=== PATIENT | male | born 1945 | race Asian ===

== ENCOUNTER 2018-10-24 19:29 | Inpatient (IN) | payer MEDICARE, OTHER ==
[2018-10-24] MEDS: CEFEPIME 2GM/50 ML (PMX) 50 ML IVPB (19:53)
[2018-10-24] MEDS: ACETAMINOPHEN 325 MG TAB PO (19:53)
[2018-10-24 19:56] LABS: ADD MAN DIFF? NO
[2018-10-24] MEDS: ALBUTEROL 0.5% (NEB) 2.5 MG/0.5 ML AMP NEB (19:56)
[2018-10-24 20:00] LABS: WHITE BLOOD COUNT 13.9 10^3/ul (4.8-10.8)
[2018-10-24 20:00] LABS: ABNORMAL IP MESSAGE 1; BASOPHIL # 0.1 10^3/ul (0.0-0.1); BASOPHILS % 0.4 % (0.0-2.0); EOSINOPHILS % 0.2 % (0.0-7.0); HEMATOCRIT 37.5 % (42.0-52.0); HEMOGLOBIN 12.5 g/dl (14.0-18.0); LYMPHOCYTES # 1.2 10^3/ul (0.8-2.9); LYMPHOCYTES % 8.8 % (15.0-51.0); MEAN CORPUSCULAR HEMOGLOBIN 29.8 pg (29.0-33.0); MEAN CORPUSCULAR HGB CONC 33.3 g/dl (32.0-37.0); MEAN CORPUSCULAR VOLUME 89.5 fl (82.0-101.0); MEAN PLATELET VOLUME 10.8 fl (7.4-10.4); MONOCYTE # 1.8 10^3/ul (0.3-0.9); MONOCYTES % 13.1 % (0.0-11.0); NEUTROPHIL # 10.7 10^3/ul (1.6-7.5); NEUTROPHILS % 76.9 % (39.0-77.0); PLATELET COUNT 176 10^3/UL (140-415); POSITIVE DIFF @See below; RED BLOOD COUNT 4.19 10^6/ul (4.70-6.10); RED CELL DISTRIBUTION WIDTH 14.4 % (11.5-14.5)
[2018-10-24 20:07] LABS: AADO2 Arterial 123.7 mmHg (7.0-24.0); Allen Test ACCEPTAB; Arterial Base Excess -7.1 mmol/L (-3.0-3); Arterial Blood Gas Oxygen Sat 95.9 mmHG (95.0-100.0); Arterial COHb 0.8 % (0.0-3.0); Arterial HCO3 15.9 mmol/L (22.0-26.0); Arterial MetHb 0.1 % (0.0-1.5); Arterial pCO2 25.7 mmhg (35-45); MODE NASAL CANNULA; Site Left Radial
[2018-10-24 20:17] LABS: ALANINE AMINOTRANSFERASE 21 IU/L (13-69); ALBUMIN 4.3 g/dl (3.3-4.9); ALBUMIN/GLOBULIN RATIO 1.02; ALKALINE PHOSPHATASE 74 IU/L (42-121); ANION GAP 15 (5-13); ASPARTATE AMINO TRANSFERASE 36 IU/L (15-46); BILIRUBIN,INDIRECT 0.8 mg/dl (0-1.1); BILIRUBIN,TOTAL 0.8 mg/dl (0.2-1.3); BLOOD UREA NITROGEN 20 mg/dl (7-20); CALCIUM 8.5 mg/dl (8.4-10.2); CARBON DIOXIDE 18 mmol/L (21-31); CHLORIDE 95 mmol/L (97-110); CREATININE 1.48 mg/dl (0.61-1.24); GLUCOSE 306 mg/dl (70-220); INR 1.17; POTASSIUM 4.5 mmol/L (3.5-5.1); PT RATIO 1.2; SODIUM 128 mmol/L (135-144); TOTAL PROTEIN 8.5 g/dl (6.1-8.1)
[2018-10-24] MEDS: VANCOMYCIN 1 GM (PMX) 250 ML IVPB (20:23)
[2018-10-24 20:32] LABS: B-TYPE NATRIURETIC PEPTIDE 1450 PG/ML (0-125)
[2018-10-24] MEDS: SODIUM CHLORIDE 0.9% 1L BAG IV* (20:34)
[2018-10-24] MEDS: ACCU-CHEK XX ×2 (22:00→23:00)
[2018-10-24] MEDS ORDERED: VANCOMYCIN IV PER PHARMACY XX (22:00)
[2018-10-24] MEDS ORDERED: ONDANSETRON 4 MG INJ IV (22:00)
[2018-10-24] MEDS ORDERED: DEXTROSE 50% 50 ML SYRINGE IV ×2 (22:00)
[2018-10-24] MEDS ORDERED: BISACODYL (EC) 5 MG TAB PO (22:00)
[2018-10-24] MEDS ORDERED: DOCUSATE SODIUM 100 MG CAP PO (22:00)
[2018-10-24 22:12] LABS: LACTIC ACID 2.5 mmol/L (0.5-2.0)
[2018-10-24] MEDS ORDERED: LEVALBUTEROL (NEB) 1.25 MG/0.5 ML AMP HHN (22:30)
[2018-10-24] MEDS: LORAZEPAM 2 MG INJ IV (22:57)
[2018-10-24] MEDS: FAMOTIDINE 20 MG INJ IV (22:57)
[2018-10-24] MEDS: METHYLPREDNISOLONE 125 MG INJ IV (22:58)
[2018-10-24 22:59] LABS: ADD UMIC YES; UR ASCORBIC ACID NEGATIVE (NEGATIVE); UR BILIRUBIN (Dip) NEGATIVE (NEGATIVE); UR BLOOD (Dip) NEGATIVE (NEGATIVE); UR CLARITY CLEAR (CLEAR); UR COLOR YELLOW (YELLOW); UR GLUCOSE (Dip) 2+ mg/dL (NEGATIVE); UR KETONES (Dip) NEGATIVE (NEGATIVE); UR LEUKOCYTE ESTERASE (Dip) NEGATIVE Leu/ul (NEGATIVE); UR NITRITE (Dip) NEGATIVE (NEGATIVE); UR RBC 1 /HPF (0-5); UR TOTAL PROTEIN (Dip) 2+ mg/dl (NEGATIVE); UR UROBILINOGEN (Dip) NEGATIVE (NEGATIVE); UR WBC 1 /HPF (0-5)
[2018-10-24] MEDS: INSULIN HUMAN REGULAR 100 UNIT in SOD CHLORIDE 0.9% 99 ML IV (23:49)
[2018-10-24] MEDS: SOD CHLORIDE 0.9% 1,000 ML IV (23:51)
[2018-10-24] MEDS: HEPARIN 5,000 UNIT/1 ML VIAL SC (23:55)
[2018-10-25] MEDS: ACETAMINOPHEN 650MG/20.3ML CUP PO (00:25)
[2018-10-25 00:39] LABS: LACTIC ACID 2.8 mmol/L (0.5-2.0)
[2018-10-25] MEDS: PIPER-TAZO 3.375 GM IV (PMX) 100 ML IVPB ×4 (01:33→18:18)
[2018-10-25] MEDS: LORAZEPAM 2 MG INJ IV ×2 (01:43→22:01)
[2018-10-25] MEDS: ACCU-CHEK XX ×24 (01:52→23:00)
[2018-10-25] MEDS: LEVALBUTEROL (NEB) 1.25 MG/0.5 ML AMP HHN ×6 (02:06→19:53)
[2018-10-25] MEDS: IPRATROPIUM (NEB) 0.5 MG/2.5 ML AMP HHN ×6 (02:06→19:52)
[2018-10-25 02:22] LABS: CREATINE KINASE 401 IU/L (23-200)
[2018-10-25 02:34] LABS: CK INDEX 0.7; CK-MB 2.69 ng/ml (0.0-2.4); TROPONIN-I 0.038 ng/ml (0.000-0.120)
[2018-10-25 05:03] LABS: AADO2 Arterial 92.2 mmHg (7.0-24.0); Allen Test ACCEPTAB; Arterial Base Excess -6.8 mmol/L (-3.0-3); Arterial Blood Gas Oxygen Sat 98.4 mmHG (95.0-100.0); Arterial COHb 0.3 % (0.0-3.0); Arterial Fraction of Oxyhgb 97.9 % (93.0-99.0); Arterial HCO3 19.2 mmol/L (22.0-26.0); Arterial MetHb 0.2 % (0.0-1.5); Arterial pCO2 40.2 mmhg (35-45); Blood Gas IEPAP 15/5; MODE MASK - BIPAP; Site Right Radial
[2018-10-25] MEDS: METHYLPREDNISOLONE 40 MG INJ IV ×3 (05:52→21:51)
[2018-10-25] MEDS: NA BICARBONATE 8.4% 50 ML SYG IV (05:52)
[2018-10-25] MEDS: HEPARIN 5,000 UNIT/1 ML VIAL SC ×2 (06:21→14:07)
[2018-10-25 06:31] LABS: ADD MAN DIFF? NO
[2018-10-25 06:34] LABS: WHITE BLOOD COUNT 14.9 10^3/ul (4.8-10.8)
[2018-10-25 06:34] LABS: ABNORMAL IP MESSAGE 1; BASOPHILS % 0.3 % (0.0-2.0); HEMATOCRIT 33.4 % (42.0-52.0); LYMPHOCYTES # 1.7 10^3/ul (0.8-2.9); LYMPHOCYTES % 11.4 % (15.0-51.0); MEAN CORPUSCULAR HEMOGLOBIN 29.3 pg (29.0-33.0); MEAN CORPUSCULAR HGB CONC 32.9 g/dl (32.0-37.0); MEAN CORPUSCULAR VOLUME 88.8 fl (82.0-101.0); MEAN PLATELET VOLUME 9.8 fl (7.4-10.4); MONOCYTE # 1.4 10^3/ul (0.3-0.9); MONOCYTES % 9.3 % (0.0-11.0); NEUTROPHIL # 11.7 10^3/ul (1.6-7.5); NEUTROPHILS % 78.3 % (39.0-77.0); PLATELET COUNT 149 10^3/UL (140-415); POSITIVE DIFF @See below; RED BLOOD COUNT 3.76 10^6/ul (4.70-6.10); RED CELL DISTRIBUTION WIDTH 14.5 % (11.5-14.5)
[2018-10-25 06:56] LABS: ALANINE AMINOTRANSFERASE 17 IU/L (13-69); ALBUMIN 3.7 g/dl (3.3-4.9); ALBUMIN/GLOBULIN RATIO 0.94; ALKALINE PHOSPHATASE 61 IU/L (42-121); ANION GAP 12 (5-13); ASPARTATE AMINO TRANSFERASE 36 IU/L (15-46); BILIRUBIN,INDIRECT 0.5 mg/dl (0-1.1); BILIRUBIN,TOTAL 0.5 mg/dl (0.2-1.3); BLOOD UREA NITROGEN 20 mg/dl (7-20); CALCIUM 8.1 mg/dl (8.4-10.2); CARBON DIOXIDE 22 mmol/L (21-31); CHLORIDE 102 mmol/L (97-110); CHOL/HDL RATIO 5.5 RATIO; CHOLESTEROL 111 mg/dl (100-200); CREATININE 1.06 mg/dl (0.61-1.24); GLUCOSE 164 mg/dl (70-220); HDL CHOLESTEROL 20 mg/dl (31-75); LDL CHOLESTEROL,CALCULATED 70 mg/dl; MAGNESIUM 1.4 mg/dl (1.7-2.5); POTASSIUM 4.1 mmol/L (3.5-5.1); SODIUM 136 mmol/L (135-144); TOTAL PROTEIN 7.6 g/dl (6.1-8.1); TRIGLYCERIDES 104 mg/dl (0-149)
[2018-10-25 07:12] LABS: Allen Test ACCEPTAB; Arterial Base Excess -5.5 mmol/L (-3.0-3); Arterial Blood Gas Oxygen Sat 96.8 mmHG (95.0-100.0); Arterial COHb 0.3 % (0.0-3.0); Arterial Fraction of Oxyhgb 96.4 % (93.0-99.0); Arterial HCO3 18.6 mmol/L (22.0-26.0); Arterial MetHb 0.1 % (0.0-1.5); Arterial pCO2 31.9 mmhg (35-45); Blood Gas IEPAP 15/5; Blood Gas PS 10; MODE MASK - BIPAP; Site Right Radial
[2018-10-25 07:23] LABS: CREATINE KINASE 329 IU/L (23-200)
[2018-10-25 07:25] LABS: THYROID STIMULATING HORMONE 0.235 MIU/L (0.465-4.680)
[2018-10-25 07:26] LABS: CK INDEX 0.7; CK-MB 2.39 ng/ml (0.0-2.4); TROPONIN-I 0.036 ng/ml (0.000-0.120)
[2018-10-25] MEDS: MAGNESIUM SULFATE 3 GM in DEXTROSE 5% 100 ML IVPB (08:48)
[2018-10-25] MEDS: FAMOTIDINE 20 MG INJ IV ×2 (09:10→21:56)
[2018-10-25 09:13] LABS: BAND NEUTROPHILS #M 5.3 10^3/ul (0.0-0.6); BAND NEUTROPHILS % (M) 36 % (0-4); BURR CELLS 1+ (0-0); GIANT THROMBO% (M) 1 % (0-0); LYMPHOCYTES #M 2.5 10^3/ul (0.8-2.9); LYMPHOCYTES % (M) 17 % (15-51); METAMYELOCYTES #M 0.1 10^3/ul (0.0-0.0); METAMYELOCYTES %M 1 % (0-0); MONOCYTE #M 1.4 10^3/ul (0.3-0.9); MONOCYTES % (M) 10 % (0-11); MYELOCYTES #M 0.1 10^3/ul (0.0-0.0); MYELOCYTES % (M) 1 % (0-0); OVALOCYTES 1+ (0-0); PLATELET ESTIMATE NORMAL; POIKILOCYTOSIS 1+ (0-0); SEGMENTED NEUTROPHILS (M) % 35 % (39-77); SMUDGE%M 5 % (0-0); SPHEROCYTES 1+ (0-0)
[2018-10-25] MEDS: SOD CHLORIDE 0.9% 1,000 ML IV ×2 (11:59→17:03)
[2018-10-25] MEDS: VANCOMYCIN 1.25 GM/NS 250 ML 250 ML IVPB (20:16)
[2018-10-25] MEDS: DOCUSATE SODIUM 100 MG CAP PO (21:56)
[2018-10-25] MEDS: ENOXAPARIN 40 MG/0.4 ML SYG SC (21:58)
[2018-10-26] MEDS: LEVALBUTEROL (NEB) 1.25 MG/0.5 ML AMP HHN ×6 (00:06→20:12)
[2018-10-26] MEDS: IPRATROPIUM (NEB) 0.5 MG/2.5 ML AMP HHN ×6 (00:06→20:12)
[2018-10-26] MEDS: PIPER-TAZO 3.375 GM IV (PMX) 100 ML IVPB ×4 (00:22→17:26)
[2018-10-26] MEDS: ACCU-CHEK XX ×24 (00:22→23:00)
[2018-10-26] MEDS: INSULIN HUMAN REGULAR 100 UNIT in SOD CHLORIDE 0.9% 99 ML IV (03:52)
[2018-10-26 05:24] LABS: WHITE BLOOD COUNT 10.9 10^3/ul (4.8-10.8)
[2018-10-26 05:24] LABS: HEMATOCRIT 36.4 % (42.0-52.0); HEMOGLOBIN 11.8 g/dl (14.0-18.0); MEAN CORPUSCULAR HGB CONC 32.4 g/dl (32.0-37.0); MEAN CORPUSCULAR VOLUME 89.4 fl (82.0-101.0); MEAN PLATELET VOLUME 10.3 fl (7.4-10.4); PLATELET COUNT 182 10^3/UL (140-415); POSITIVE DIFF @See below; RED BLOOD COUNT 4.07 10^6/ul (4.70-6.10); RED CELL DISTRIBUTION WIDTH 14.6 % (11.5-14.5)
[2018-10-26 05:36] LABS: ADD MAN DIFF? YES
[2018-10-26 05:44] LABS: CREATINE KINASE 289 IU/L (23-200)
[2018-10-26 05:46] LABS: ANION GAP 12 (5-13); BLOOD UREA NITROGEN 19 mg/dl (7-20); CALCIUM 8.6 mg/dl (8.4-10.2); CARBON DIOXIDE 19 mmol/L (21-31); CHLORIDE 108 mmol/L (97-110); CREATININE 1.06 mg/dl (0.61-1.24); GLUCOSE 216 mg/dl (70-220); MAGNESIUM 2.3 mg/dl (1.7-2.5); POTASSIUM 3.3 mmol/L (3.5-5.1); SODIUM 139 mmol/L (135-144)
[2018-10-26 05:57] LABS: CK INDEX 1.2; TROPONIN-I 0.024 ng/ml (0.000-0.120)
[2018-10-26 06:00] LABS: CK-MB 3.35 ng/ml (0.0-2.4)
[2018-10-26] MEDS: METHYLPREDNISOLONE 40 MG INJ IV (06:01)
[2018-10-26] MEDS: GUAIFENESIN/DM (SR) TAB PO ×3 (06:01→22:23)
[2018-10-26 06:05] LABS: LACTIC ACID 3.8 mmol/L (0.5-2.0)
[2018-10-26] MEDS: POTASSIUM CHLORIDE (SR) 20 MEQ TAB PO ×2 (06:54→09:14)
[2018-10-26 07:25] LABS: FREE T4 (FREE THYROXINE) 2.13 ng/dl (0.78-2.44)
[2018-10-26 07:41] LABS: ANISOCYTOSIS 1+ (0-0); BAND NEUTROPHILS #M 2.7 10^3/ul (0.0-0.6); BAND NEUTROPHILS % (M) 25 % (0-4); BURR CELLS 2+ (0-0); GIANT THROMBO% (M) 3 % (0-0); LYMPHOCYTES #M 0.4 10^3/ul (0.8-2.9); LYMPHOCYTES % (M) 4 % (15-51); MONOCYTE #M 0.7 10^3/ul (0.3-0.9); MONOCYTES % (M) 7 % (0-11); PLASMA CELLS #M 0.1 10^3/ul (0.0-0.0); PLASMAC%(M) 1 % (0); PLATELET ESTIMATE NORMAL; POIKILOCYTOSIS 2+ (0-0); POLYCHROMASIA 1+ (0-0); SEG NEUT #M 7.2 10^3/ul (1.6-7.5); SEGMENTED NEUTROPHILS (M) % 63 % (39-77); SMUDGE%M 9 % (0-0)
[2018-10-26 08:18] LABS: ADD UMIC YES; UR ASCORBIC ACID NEGATIVE (NEGATIVE); UR BILIRUBIN (Dip) NEGATIVE (NEGATIVE); UR BLOOD (Dip) 3+ mg/dL (NEGATIVE); UR CLARITY SLIGHTLY CLOUDY (CLEAR); UR COLOR RED (YELLOW); UR GLUCOSE (Dip) 1+ mg/dL (NEGATIVE); UR KETONES (Dip) NEGATIVE (NEGATIVE); UR LEUKOCYTE ESTERASE (Dip) NEGATIVE Leu/ul (NEGATIVE); UR NITRITE (Dip) NEGATIVE (NEGATIVE); UR NONSQUAMOUS EPITHELIAL CELL 2 /HPF (NONE SEEN); UR RBC > 182 /HPF (0-5); UR SPECIFIC GRAVITY (Dip) 1.017 (1.003-1.030); UR TOTAL PROTEIN (Dip) 2+ mg/dl (NEGATIVE); UR UROBILINOGEN (Dip) NEGATIVE (NEGATIVE); UR WBC 15 /HPF (0-5)
[2018-10-26 08:40] LABS: Allen Test ACCEPTAB; Arterial Base Excess -4.5 mmol/L (-3.0-3); Arterial Blood Gas Oxygen Sat 97.1 mmHG (95.0-100.0); Arterial COHb 0.2 % (0.0-3.0); Arterial Fraction of Oxyhgb 96.7 % (93.0-99.0); Arterial HCO3 19.1 mmol/L (22.0-26.0); Arterial MetHb 0.2 % (0.0-1.5); Arterial pCO2 30.7 mmhg (35-45); MODE NASAL CANNULA; Site Right Radial
[2018-10-26] MEDS: SOD CHLORIDE 0.9% 1,000 ML IV ×2 (08:42→16:35)
[2018-10-26] MEDS ORDERED: DEXTROSE 50% 50 ML SYRINGE IV ×2 (09:00)
[2018-10-26] MEDS ORDERED: GLUCOSE GEL 15 GRAM TUBE PO ×2 (09:00)
[2018-10-26] MEDS ORDERED: GLUCAGON 1 MG INJ IM (09:00)
[2018-10-26] MEDS ORDERED: GLUCOSE GEL 15 GRAM TUBE BUCCAL (09:00)
[2018-10-26] MEDS: FAMOTIDINE 20 MG INJ IV ×2 (09:14→20:42)
[2018-10-26] MEDS: DOCUSATE SODIUM 100 MG CAP PO ×2 (09:14→20:42)
[2018-10-26 09:17] LABS: URIC ACID 4.6 mg/dl (3.1-7.9)
[2018-10-26] MEDS: ALLOPURINOL 100 MG TAB PO (09:52)
[2018-10-26] MEDS: FLUTICASONE/VILANTEROL 100-25 INH (09:52)
[2018-10-26] MEDS: LINAGLIPTIN 5 MG TABLET PO (09:52)
[2018-10-26] MEDS: ASPIRIN (EC) 81 MG TAB PO (09:52)
[2018-10-26] MEDS: TIOTROPIUM 18 MCG CAPSULE INHA DEV INH (09:55)
[2018-10-26] MEDS: EZETIMIBE 10 MG TAB PO (12:13)
[2018-10-26] MEDS: metFORMIN 500 MG TAB PO ×3 (12:29→17:35)
[2018-10-26 12:48] LABS: LACTIC ACID 3.9 mmol/L (0.5-2.0)
[2018-10-26] MEDS: AZITHROMYCIN 250 MG in SOD CHLORIDE 0.9% 250 ML IVPB (13:59)
[2018-10-26] MEDS: METHYLPREDNISOLONE 125 MG INJ IV ×2 (14:38→22:14)
[2018-10-26] MEDS: NPH, HUMAN INSULIN ISOPHANE 3ML VIAL SC ×2 (14:39→23:08)
[2018-10-26] MEDS: GUAIFENESIN/CODEINE 5ML CUP PO (20:02)
[2018-10-26] MEDS: METOPROLOL 25 MG TAB PO (20:42)
[2018-10-26] MEDS: LORAZEPAM 2 MG INJ IV (20:43)
[2018-10-26] MEDS: ENOXAPARIN 40 MG/0.4 ML SYG SC (20:55)
[2018-10-27] MEDS: IPRATROPIUM (NEB) 0.5 MG/2.5 ML AMP HHN ×6 (00:01→20:38)
[2018-10-27] MEDS: LEVALBUTEROL (NEB) 1.25 MG/0.5 ML AMP HHN ×6 (00:01→20:38)
[2018-10-27] MEDS: PIPER-TAZO 3.375 GM IV (PMX) 100 ML IVPB ×3 (00:13→12:14)
[2018-10-27] MEDS: GUAIFENESIN/CODEINE 5ML CUP PO (00:13)
[2018-10-27] MEDS: ACCU-CHEK XX ×24 (00:13→23:00)
[2018-10-27] MEDS: SOD CHLORIDE 0.9% 1,000 ML IV ×2 (01:12→15:38)
[2018-10-27] MEDS: GUAIFENESIN/DM 5ML CUP PO ×5 (02:25→22:42)
[2018-10-27] MEDS: INSULIN HUMAN REGULAR 100 UNIT in SOD CHLORIDE 0.9% 99 ML IV (02:33)
[2018-10-27] MEDS: LORAZEPAM 2 MG INJ IV ×3 (03:11→23:59)
[2018-10-27 05:16] LABS: ADD MAN DIFF? NO
[2018-10-27 05:26] LABS: WHITE BLOOD COUNT 13.3 10^3/ul (4.8-10.8)
[2018-10-27 05:26] LABS: BASOPHIL # 0.1 10^3/ul (0.0-0.1); BASOPHILS % 0.5 % (0.0-2.0); HEMATOCRIT 33.9 % (42.0-52.0); LYMPHOCYTES # 1.1 10^3/ul (0.8-2.9); LYMPHOCYTES % 8.3 % (15.0-51.0); MEAN CORPUSCULAR HGB CONC 32.4 g/dl (32.0-37.0); MEAN CORPUSCULAR VOLUME 89.4 fl (82.0-101.0); MEAN PLATELET VOLUME 10.1 fl (7.4-10.4); MONOCYTE # 0.7 10^3/ul (0.3-0.9); MONOCYTES % 5.6 % (0.0-11.0); NEUTROPHILS % 82.9 % (39.0-77.0); NUCLEATED RED BLOOD CELLS% 0.2 /100WBC (0.0-0.0); PLATELET COUNT 198 10^3/UL (140-415); RED BLOOD COUNT 3.79 10^6/ul (4.70-6.10); RED CELL DISTRIBUTION WIDTH 14.9 % (11.5-14.5)
[2018-10-27 05:49] LABS: LACTIC ACID 1.6 mmol/L (0.5-2.0)
[2018-10-27 05:54] LABS: MAGNESIUM 2.1 mg/dl (1.7-2.5)
[2018-10-27 06:02] LABS: ANION GAP 8 (5-13); BLOOD UREA NITROGEN 22 mg/dl (7-20); CALCIUM 8.6 mg/dl (8.4-10.2); CARBON DIOXIDE 21 mmol/L (21-31); CHLORIDE 112 mmol/L (97-110); CREATININE 1.04 mg/dl (0.61-1.24); GLUCOSE 165 mg/dl (70-220); POTASSIUM 4.1 mmol/L (3.5-5.1); SODIUM 141 mmol/L (135-144)
[2018-10-27] MEDS: METHYLPREDNISOLONE 125 MG INJ IV (06:11)
[2018-10-27] MEDS: NPH, HUMAN INSULIN ISOPHANE 3ML VIAL SC ×3 (06:28→21:24)
[2018-10-27] MEDS: GUAIFENESIN/DM (SR) TAB PO ×2 (08:34→22:42)
[2018-10-27] MEDS: FAMOTIDINE 20 MG INJ IV ×2 (09:15→20:06)
[2018-10-27] MEDS: ALLOPURINOL 100 MG TAB PO (09:15)
[2018-10-27] MEDS: EZETIMIBE 10 MG TAB PO (09:15)
[2018-10-27] MEDS: metFORMIN 500 MG TAB PO ×2 (09:16→17:35)
[2018-10-27] MEDS: DOCUSATE SODIUM 100 MG CAP PO ×2 (09:17→20:06)
[2018-10-27] MEDS: METOPROLOL 25 MG TAB PO ×2 (09:17→20:06)
[2018-10-27] MEDS: LINAGLIPTIN 5 MG TABLET PO (09:17)
[2018-10-27] MEDS: ASPIRIN (EC) 81 MG TAB PO (09:17)
[2018-10-27] MEDS: FLUTICASONE/VILANTEROL 100-25 INH (09:22)
[2018-10-27] MEDS: TIOTROPIUM 18 MCG CAPSULE INHA DEV INH (09:24)
[2018-10-27] MEDS: AZITHROMYCIN 250 MG in SOD CHLORIDE 0.9% 250 ML IVPB (14:04)
[2018-10-27] MEDS: BENZONATATE 100 MG CAP PO ×2 (14:05→20:06)
[2018-10-27] MEDS: METHYLPREDNISOLONE 40 MG INJ IV ×2 (14:07→21:27)
[2018-10-28] MEDS: INSULIN HUMAN REGULAR 100 UNIT in SOD CHLORIDE 0.9% 99 ML IV (00:51)
[2018-10-28] MEDS: ACCU-CHEK XX ×15 (00:51→14:00)
[2018-10-28] MEDS ORDERED: DILTIAZEM 25 MG INJ (01:28)
[2018-10-28] MEDS: DILTIAZEM 25 MG INJ IV (01:32)
[2018-10-28] MEDS: IPRATROPIUM (NEB) 0.5 MG/2.5 ML AMP HHN ×6 (01:42→20:48)
[2018-10-28] MEDS: LEVALBUTEROL (NEB) 1.25 MG/0.5 ML AMP HHN ×6 (01:42→20:49)
[2018-10-28] MEDS: GUAIFENESIN/DM 5ML CUP PO ×4 (02:39→22:08)
[2018-10-28 05:31] LABS: ABNORMAL IP MESSAGE 1; HEMATOCRIT 40.4 % (42.0-52.0); MEAN CORPUSCULAR HEMOGLOBIN 29.1 pg (29.0-33.0); MEAN CORPUSCULAR HGB CONC 32.2 g/dl (32.0-37.0); MEAN CORPUSCULAR VOLUME 90.6 fl (82.0-101.0); MEAN PLATELET VOLUME 10.2 fl (7.4-10.4); NUCLEATED RED BLOOD CELLS% 0.2 /100WBC (0.0-0.0); PLATELET COUNT 232 10^3/UL (140-415); POSITIVE DIFF @See below; RED BLOOD COUNT 4.46 10^6/ul (4.70-6.10)
[2018-10-28 05:31] LABS: WHITE BLOOD COUNT 18.9 10^3/ul (4.8-10.8)
[2018-10-28 05:39] LABS: ADD MAN DIFF? YES
[2018-10-28] MEDS: METHYLPREDNISOLONE 40 MG INJ IV ×3 (05:43→22:29)
[2018-10-28] MEDS: NPH, HUMAN INSULIN ISOPHANE 3ML VIAL SC ×3 (05:58→22:45)
[2018-10-28 06:25] LABS: ANION GAP 14 (5-13); BLOOD UREA NITROGEN 20 mg/dl (7-20); CARBON DIOXIDE 19 mmol/L (21-31); CHLORIDE 107 mmol/L (97-110); CREATININE 0.96 mg/dl (0.61-1.24); GLUCOSE 148 mg/dl (70-220); POTASSIUM 4.1 mmol/L (3.5-5.1); SODIUM 140 mmol/L (135-144)
[2018-10-28] MEDS: FAMOTIDINE 20 MG INJ IV ×2 (08:24→21:06)
[2018-10-28] MEDS: metFORMIN 500 MG TAB PO (08:24)
[2018-10-28] MEDS: BENZONATATE 100 MG CAP PO ×3 (08:25→21:10)
[2018-10-28] MEDS: ASPIRIN (EC) 81 MG TAB PO (08:26)
[2018-10-28] MEDS: EZETIMIBE 10 MG TAB PO (08:26)
[2018-10-28] MEDS: DOCUSATE SODIUM 100 MG CAP PO ×2 (08:26→21:06)
[2018-10-28] MEDS: METOPROLOL 25 MG TAB PO (08:26)
[2018-10-28] MEDS: FLUTICASONE/VILANTEROL 100-25 INH (08:26)
[2018-10-28] MEDS: ALLOPURINOL 100 MG TAB PO (08:26)
[2018-10-28] MEDS: LINAGLIPTIN 5 MG TABLET PO (08:26)
[2018-10-28] MEDS: TIOTROPIUM 18 MCG CAPSULE INHA DEV INH (08:47)
[2018-10-28 09:14] LABS: BAND NEUTROPHILS #M 4.7 10^3/ul (0.0-0.6); BAND NEUTROPHILS % (M) 25 % (0-4); BASOPHIL #M 0.1 10^3/ul (0.0-0.0); BASOPHILS % (M) 1 % (0-2); BURR CELLS 2+ (0-0); ERYTHROBLAST% (NRBC) (M) 1 % (0-0); GIANT THROMBO% (M) 3 % (0-0); LYMPHOCYTES #M 1.5 10^3/ul (0.8-2.9); LYMPHOCYTES % (M) 8 % (15-51); METAMYELOCYTES #M 0.3 10^3/ul (0.0-0.0); METAMYELOCYTES %M 2 % (0-0); MONOCYTE #M 1.1 10^3/ul (0.3-0.9); MONOCYTES % (M) 6 % (0-11); MYELOCYTES #M 0.1 10^3/ul (0.0-0.0); MYELOCYTES % (M) 1 % (0-0); OVALOCYTES 1+ (0-0); PLASMA CELLS #M 0.3 10^3/ul (0.0-0.0); PLASMAC%(M) 2 % (0); PLATELET ESTIMATE NORMAL; POIKILOCYTOSIS 3+ (0-0); REACTIVE LYMPHOCYTES #M 0.3 10^3/ul (0.0-0.0); REACTIVE LYMPHOCYTES% (M) 2 % (0-0); SEG NEUT #M 10.9 10^3/ul (1.6-7.5); SEGMENTED NEUTROPHILS (M) % 53 % (39-77)
[2018-10-28] MEDS: AZITHROMYCIN 250 MG in SOD CHLORIDE 0.9% 250 ML IVPB (12:51)
[2018-10-28] MEDS: INSULIN ASPART [NOVOLOG] 3 ML PEN SC ×5 (12:55→21:00)
[2018-10-28] MEDS: INSULIN GLARGINE [LANTus] (100 UNITS/ML) SYG SC (12:55)
[2018-10-28] MEDS: GUAIFENESIN/DM (SR) TAB PO (13:12)
[2018-10-28] MEDS ORDERED: GLUCOSE GEL 15 GRAM TUBE BUCCAL (14:30)
[2018-10-28] MEDS ORDERED: GLUCOSE GEL 15 GRAM TUBE PO ×2 (14:30)
[2018-10-28] MEDS ORDERED: DEXTROSE 50% 50 ML SYRINGE IV ×2 (14:30)
[2018-10-28] MEDS ORDERED: GLUCAGON 1 MG INJ IM (14:30)
[2018-10-28] MEDS: METOPROLOL 50 MG TAB PO (21:07)
[2018-10-28] MEDS: LORAZEPAM 2 MG INJ IV (22:08)
[2018-10-29] MEDS: IPRATROPIUM (NEB) 0.5 MG/2.5 ML AMP HHN ×6 (01:08→20:51)
[2018-10-29] MEDS: LEVALBUTEROL (NEB) 1.25 MG/0.5 ML AMP HHN ×6 (01:08→20:51)
[2018-10-29] MEDS: ACCU-CHEK XX (02:00)
[2018-10-29] MEDS: METHYLPREDNISOLONE 40 MG INJ IV ×2 (05:59→21:55)
[2018-10-29 06:11] LABS: ADD MAN DIFF? NO
[2018-10-29] MEDS: NPH, HUMAN INSULIN ISOPHANE 3ML VIAL SC ×2 (06:23→22:19)
[2018-10-29 06:25] LABS: WHITE BLOOD COUNT 16.5 10^3/ul (4.8-10.8)
[2018-10-29 06:25] LABS: ABNORMAL IP MESSAGE 1; BASOPHIL # 0.1 10^3/ul (0.0-0.1); BASOPHILS % 0.5 % (0.0-2.0); HEMATOCRIT 36.2 % (42.0-52.0); HEMOGLOBIN 11.9 g/dl (14.0-18.0); LYMPHOCYTES # 1.6 10^3/ul (0.8-2.9); LYMPHOCYTES % 9.8 % (15.0-51.0); MEAN CORPUSCULAR HGB CONC 32.9 g/dl (32.0-37.0); MEAN CORPUSCULAR VOLUME 88.3 fl (82.0-101.0); MEAN PLATELET VOLUME 10.2 fl (7.4-10.4); MONOCYTE # 1.1 10^3/ul (0.3-0.9); MONOCYTES % 6.5 % (0.0-11.0); NEUTROPHIL # 12.1 10^3/ul (1.6-7.5); NEUTROPHILS % 73.4 % (39.0-77.0); NUCLEATED RED BLOOD CELLS # 0.2 10^3/ul (0.0-0.0); NUCLEATED RED BLOOD CELLS% 1.3 /100WBC (0.0-0.0); PLATELET COUNT 231 10^3/UL (140-415); POSITIVE DIFF @See below; RED CELL DISTRIBUTION WIDTH 14.8 % (11.5-14.5)
[2018-10-29 06:36] LABS: ANION GAP 7 (5-13); BLOOD UREA NITROGEN 21 mg/dl (7-20); CALCIUM 8.9 mg/dl (8.4-10.2); CARBON DIOXIDE 27 mmol/L (21-31); CHLORIDE 106 mmol/L (97-110); GLUCOSE 115 mg/dl (70-220); MAGNESIUM 1.9 mg/dl (1.7-2.5); POTASSIUM 4.4 mmol/L (3.5-5.1); SODIUM 140 mmol/L (135-144)
[2018-10-29] MEDS: INSULIN ASPART [NOVOLOG] 3 ML PEN SC ×7 (08:00→21:00)
[2018-10-29] MEDS: BENZONATATE 100 MG CAP PO ×3 (09:06→21:17)
[2018-10-29] MEDS: FAMOTIDINE 20 MG INJ IV ×2 (09:06→21:18)
[2018-10-29] MEDS: EZETIMIBE 10 MG TAB PO (09:06)
[2018-10-29] MEDS: DOCUSATE SODIUM 100 MG CAP PO ×2 (09:06→21:17)
[2018-10-29] MEDS: METOPROLOL 50 MG TAB PO ×2 (09:07→21:18)
[2018-10-29] MEDS: ALLOPURINOL 100 MG TAB PO (09:07)
[2018-10-29] MEDS: ASPIRIN (EC) 81 MG TAB PO (09:07)
[2018-10-29] MEDS: LINAGLIPTIN 5 MG TABLET PO (09:07)
[2018-10-29] MEDS: TIOTROPIUM 18 MCG CAPSULE INHA DEV INH (09:08)
[2018-10-29] MEDS: FLUTICASONE/VILANTEROL 100-25 INH (09:09)
[2018-10-29] MEDS: INSULIN GLARGINE [LANTus] (100 UNITS/ML) SYG SC (10:19)
[2018-10-29 10:57] LABS: ANISOCYTOSIS 1+ (0-0); BAND NEUTROPHILS #M 1.3 10^3/ul (0.0-0.6); BAND NEUTROPHILS % (M) 8 % (0-4); BURR CELLS 2+ (0-0); ERYTHROBLAST% (NRBC) (M) 1 % (0-0); LYMPHOCYTES #M 0.8 10^3/ul (0.8-2.9); LYMPHOCYTES % (M) 5 % (15-51); METAMYELOCYTES #M 0.4 10^3/ul (0.0-0.0); METAMYELOCYTES %M 3 % (0-0); MONOCYTE #M 1.8 10^3/ul (0.3-0.9); MONOCYTES % (M) 11 % (0-11); MYELOCYTES #M 0.4 10^3/ul (0.0-0.0); MYELOCYTES % (M) 3 % (0-0); PLATELET ESTIMATE NORMAL; POIKILOCYTOSIS 3+ (0-0); POLYCHROMASIA 3+ (0-0); PROMYELOCYTES #M 0.1 10^3/ul (0-0); PROMYELOCYTES % (M) 1 % (0-0); REACTIVE LYMPHOCYTES #M 0.1 10^3/ul (0.0-0.0); REACTIVE LYMPHOCYTES% (M) 1 % (0-0); SEG NEUT #M 11.4 10^3/ul (1.6-7.5); SEGMENTED NEUTROPHILS (M) % 68 % (39-77); SMUDGE%M 6 % (0-0); TARGET CELLS 1+ (0-0)
[2018-10-29] MEDS: FUROSEMIDE 40 MG INJ IV (12:02)
[2018-10-29] MEDS: ACETYLCYSTEINE 20% 4 ML VIAL NEB ×3 (13:00→20:51)
[2018-10-29] MEDS: LISINOPRIL 20 MG TAB PO (13:18)
[2018-10-29] MEDS: AZITHROMYCIN 250 MG TAB PO (13:19)
[2018-10-29 19:46] LABS: NIL 0.01 IU/mL; QUANTIFERON(R)-TB GOLD INDETERMINATE (NEGATIVE)
[2018-10-29] MEDS: GUAIFENESIN/DM 5ML CUP PO (21:16)
[2018-10-29] MEDS: LORAZEPAM 2 MG INJ IV (21:17)
[2018-10-30] MEDS: IPRATROPIUM (NEB) 0.5 MG/2.5 ML AMP HHN ×6 (01:41→20:49)
[2018-10-30] MEDS: ACETYLCYSTEINE 20% 4 ML VIAL NEB ×6 (01:41→20:49)
[2018-10-30] MEDS: LEVALBUTEROL (NEB) 1.25 MG/0.5 ML AMP HHN ×6 (01:41→20:49)
[2018-10-30] MEDS: ACCU-CHEK XX (02:00)
[2018-10-30 06:02] LABS: ADD MAN DIFF? NO
[2018-10-30 06:06] LABS: ABNORMAL IP MESSAGE 1; BASOPHIL # 0.2 10^3/ul (0.0-0.1); BASOPHILS % 1.2 % (0.0-2.0); EOSINOPHILS % 0.1 % (0.0-7.0); HEMATOCRIT 36.3 % (42.0-52.0); LYMPHOCYTES # 1.6 10^3/ul (0.8-2.9); LYMPHOCYTES % 12.3 % (15.0-51.0); MEAN CORPUSCULAR HEMOGLOBIN 29.2 pg (29.0-33.0); MEAN CORPUSCULAR HGB CONC 33.1 g/dl (32.0-37.0); MEAN CORPUSCULAR VOLUME 88.3 fl (82.0-101.0); MONOCYTE # 1.1 10^3/ul (0.3-0.9); MONOCYTES % 8.1 % (0.0-11.0); NEUTROPHILS % 68.9 % (39.0-77.0); NUCLEATED RED BLOOD CELLS # 0.1 10^3/ul (0.0-0.0); NUCLEATED RED BLOOD CELLS% 0.9 /100WBC (0.0-0.0); PLATELET COUNT 228 10^3/UL (140-415); POSITIVE DIFF @See below; RED BLOOD COUNT 4.11 10^6/ul (4.70-6.10); RED CELL DISTRIBUTION WIDTH 14.7 % (11.5-14.5)
[2018-10-30 06:31] LABS: MAGNESIUM 1.8 mg/dl (1.7-2.5)
[2018-10-30 06:42] LABS: ANION GAP 9 (5-13); BLOOD UREA NITROGEN 27 mg/dl (7-20); CALCIUM 8.5 mg/dl (8.4-10.2); CARBON DIOXIDE 29 mmol/L (21-31); CHLORIDE 102 mmol/L (97-110); CREATININE 0.93 mg/dl (0.61-1.24); GLUCOSE 145 mg/dl (70-220); POTASSIUM 3.9 mmol/L (3.5-5.1); SODIUM 140 mmol/L (135-144)
[2018-10-30] MEDS: INSULIN ASPART [NOVOLOG] 3 ML PEN SC ×7 (08:03→21:00)
[2018-10-30] MEDS: INSULIN GLARGINE [LANTus] (100 UNITS/ML) SYG SC (08:05)
[2018-10-30] MEDS: NPH, HUMAN INSULIN ISOPHANE 3ML VIAL SC ×2 (08:32→21:12)
[2018-10-30] MEDS: TIOTROPIUM 18 MCG CAPSULE INHA DEV INH (08:40)
[2018-10-30] MEDS: FUROSEMIDE 40 MG INJ IV (08:40)
[2018-10-30] MEDS: FLUTICASONE/VILANTEROL 100-25 INH (08:41)
[2018-10-30] MEDS: DOCUSATE SODIUM 100 MG CAP PO ×2 (08:42→20:50)
[2018-10-30] MEDS: EZETIMIBE 10 MG TAB PO (08:42)
[2018-10-30] MEDS: ASPIRIN (EC) 81 MG TAB PO (08:42)
[2018-10-30] MEDS: FAMOTIDINE 20 MG INJ IV (08:42)
[2018-10-30] MEDS: BENZONATATE 100 MG CAP PO ×3 (08:42→20:52)
[2018-10-30] MEDS: ALLOPURINOL 100 MG TAB PO (08:43)
[2018-10-30] MEDS: METHYLPREDNISOLONE 40 MG INJ IV ×2 (08:49→20:53)
[2018-10-30] MEDS: LINAGLIPTIN 5 MG TABLET PO (08:50)
[2018-10-30] MEDS: METOPROLOL 50 MG TAB PO ×2 (08:50→20:52)
[2018-10-30] MEDS: LISINOPRIL 20 MG TAB PO (08:50)
[2018-10-30] MEDS: GUAIFENESIN/DM (SR) TAB PO (10:41)
[2018-10-30] MEDS: GUAIFENESIN/DM 5ML CUP PO ×2 (10:41→20:48)
[2018-10-30] MEDS: AZITHROMYCIN 250 MG TAB PO (13:31)
[2018-10-30] MEDS: FAMOTIDINE 20 MG TAB PO (20:49)
[2018-10-30] MEDS: LORAZEPAM 2 MG INJ IV (20:50)
[2018-10-31] MEDS: IPRATROPIUM (NEB) 0.5 MG/2.5 ML AMP HHN ×6 (00:23→21:37)
[2018-10-31] MEDS: LEVALBUTEROL (NEB) 1.25 MG/0.5 ML AMP HHN ×6 (00:24→21:37)
[2018-10-31] MEDS: ACETYLCYSTEINE 20% 4 ML VIAL NEB ×3 (00:24→09:30)
[2018-10-31] MEDS: ACCU-CHEK XX (02:00)
[2018-10-31 05:27] LABS: ADD MAN DIFF? NO
[2018-10-31 05:31] LABS: ABNORMAL IP MESSAGE 1; BASOPHILS % 0.3 % (0.0-2.0); HEMATOCRIT 37.8 % (42.0-52.0); HEMOGLOBIN 12.2 g/dl (14.0-18.0); LYMPHOCYTES # 1.4 10^3/ul (0.8-2.9); MEAN CORPUSCULAR HEMOGLOBIN 28.6 pg (29.0-33.0); MEAN CORPUSCULAR HGB CONC 32.3 g/dl (32.0-37.0); MEAN CORPUSCULAR VOLUME 88.5 fl (82.0-101.0); MEAN PLATELET VOLUME 9.8 fl (7.4-10.4); MONOCYTE # 0.9 10^3/ul (0.3-0.9); MONOCYTES % 7.5 % (0.0-11.0); NEUTROPHIL # 8.2 10^3/ul (1.6-7.5); NEUTROPHILS % 71.4 % (39.0-77.0); NUCLEATED RED BLOOD CELLS% 0.3 /100WBC (0.0-0.0); PLATELET COUNT 244 10^3/UL (140-415); POSITIVE DIFF @See below; RED BLOOD COUNT 4.27 10^6/ul (4.70-6.10); RED CELL DISTRIBUTION WIDTH 14.8 % (11.5-14.5)
[2018-10-31 05:31] LABS: WHITE BLOOD COUNT 11.5 10^3/ul (4.8-10.8)
[2018-10-31 06:15] LABS: ANION GAP 7 (5-13); BLOOD UREA NITROGEN 26 mg/dl (7-20); CALCIUM 8.6 mg/dl (8.4-10.2); CARBON DIOXIDE 30 mmol/L (21-31); CHLORIDE 98 mmol/L (97-110); GLUCOSE 233 mg/dl (70-220); POTASSIUM 3.8 mmol/L (3.5-5.1); SODIUM 135 mmol/L (135-144)
[2018-10-31] MEDS: NPH, HUMAN INSULIN ISOPHANE 3ML VIAL SC ×2 (07:49→20:27)
[2018-10-31] MEDS: INSULIN GLARGINE [LANTus] (100 UNITS/ML) SYG SC (07:49)
[2018-10-31] MEDS: INSULIN ASPART [NOVOLOG] 3 ML PEN SC ×7 (07:49→20:21)
[2018-10-31] MEDS: FLUTICASONE/VILANTEROL 100-25 INH (08:41)
[2018-10-31] MEDS: TIOTROPIUM 18 MCG CAPSULE INHA DEV INH (08:41)
[2018-10-31] MEDS: BENZONATATE 100 MG CAP PO ×3 (08:42→20:18)
[2018-10-31] MEDS: LISINOPRIL 20 MG TAB PO (08:42)
[2018-10-31] MEDS: EZETIMIBE 10 MG TAB PO (08:42)
[2018-10-31] MEDS: DOCUSATE SODIUM 100 MG CAP PO ×2 (08:42→20:21)
[2018-10-31] MEDS: FAMOTIDINE 20 MG TAB PO ×2 (08:42→20:19)
[2018-10-31] MEDS: LINAGLIPTIN 5 MG TABLET PO (08:43)
[2018-10-31] MEDS: FUROSEMIDE 40 MG INJ IV (08:43)
[2018-10-31] MEDS: ASPIRIN (EC) 81 MG TAB PO (08:43)
[2018-10-31] MEDS: METOPROLOL 50 MG TAB PO ×2 (08:43→20:20)
[2018-10-31] MEDS: ALLOPURINOL 100 MG TAB PO (08:43)
[2018-10-31] MEDS: METHYLPREDNISOLONE 40 MG INJ IV ×2 (08:43→20:20)
[2018-10-31] MEDS: GUAIFENESIN/DM (SR) TAB PO (20:18)
[2018-10-31] MEDS: LORAZEPAM 2 MG INJ IV (23:33)
[2018-11-01] MEDS: LEVALBUTEROL (NEB) 1.25 MG/0.5 ML AMP HHN ×5 (01:40→16:33)
[2018-11-01] MEDS: IPRATROPIUM (NEB) 0.5 MG/2.5 ML AMP HHN ×5 (01:40→16:32)
[2018-11-01] MEDS: ACCU-CHEK XX (02:24)
[2018-11-01] MEDS: GUAIFENESIN/DM 5ML CUP PO ×2 (05:27→14:13)
[2018-11-01] MEDS: INSULIN GLARGINE [LANTus] (100 UNITS/ML) SYG SC (07:45)
[2018-11-01] MEDS: INSULIN ASPART [NOVOLOG] 3 ML PEN SC ×6 (07:45→17:21)
[2018-11-01] MEDS: EZETIMIBE 10 MG TAB PO (08:20)
[2018-11-01] MEDS: METOPROLOL 50 MG TAB PO (08:20)
[2018-11-01] MEDS: TIOTROPIUM 18 MCG CAPSULE INHA DEV INH (08:21)
[2018-11-01] MEDS: DOCUSATE SODIUM 100 MG CAP PO (08:21)
[2018-11-01] MEDS: LISINOPRIL 20 MG TAB PO (08:21)
[2018-11-01] MEDS: FLUTICASONE/VILANTEROL 100-25 INH (08:21)
[2018-11-01] MEDS: FAMOTIDINE 20 MG TAB PO (08:21)
[2018-11-01] MEDS: METHYLPREDNISOLONE 40 MG INJ IV (08:21)
[2018-11-01] MEDS: LINAGLIPTIN 5 MG TABLET PO (08:21)
[2018-11-01] MEDS: ASPIRIN (EC) 81 MG TAB PO (08:21)
[2018-11-01] MEDS: ALLOPURINOL 100 MG TAB PO (08:21)
[2018-11-01] MEDS: BENZONATATE 100 MG CAP PO ×2 (08:21→12:05)
[2018-11-01] MEDS: FUROSEMIDE 40 MG INJ IV (08:22)
[2018-11-01] MEDS: NPH, HUMAN INSULIN ISOPHANE 3ML VIAL SC (08:40)
[2018-11-02] MEDS ORDERED: FUROSEMIDE 40 MG TAB PO (06:00)
[2018-11-02] MEDS ORDERED: LOSARTAN 50 MG TAB PO (09:00)
[2018-11-02] MEDS ORDERED: predniSONE 10 MG TAB PO (09:00)
[2018-11-02] MEDS ORDERED: NPH, HUMAN INSULIN ISOPHANE 3ML VIAL SC (09:00)
== END 2018-11-01 18:25 | DRG 871 ==
LOC: ICU 21:46 → E/R 19:29 → 6WM 10-28 19:05 → ICU 10-25 01:01
PROVIDERS: Family Medicine
PROC: 5A09357 Assistance with Respiratory Ventilation, Less than 24 Consecutive Hours, Continuous Positive Airway Pressure (ICD-10-PCS; principal; 2018-10-25)
DX: A41.9 Sepsis, unspecified organism (principal); J96.01 Acute respiratory failure with hypoxia; J18.9 Pneumonia, unspecified organism; E87.2 Acidosis; E87.1 Hypo-osmolality and hyponatremia; N17.9 Acute kidney failure, unspecified; J44.1 Chronic obstructive pulmonary disease with (acute) exacerbation; R65.20 Severe sepsis without septic shock; I11.0 Hypertensive heart disease with heart failure; J84.10 Pulmonary fibrosis, unspecified; E83.42 Hypomagnesemia; I50.9 Heart failure, unspecified; D64.9 Anemia, unspecified; R31.9 Hematuria, unspecified; E78.5 Hyperlipidemia, unspecified; E11.65 Type 2 diabetes mellitus with hyperglycemia; I25.10 Atherosclerotic heart disease of native coronary artery without angina pectoris; E03.9 Hypothyroidism, unspecified; E87.6 Hypokalemia; G72.89 Other specified myopathies; N40.0 Benign prostatic hyperplasia without lower urinary tract symptoms; E66.9 Obesity, unspecified; Z95.1 Presence of aortocoronary bypass graft; Z87.891 Personal history of nicotine dependence; Z68.30 Body mass index [BMI] 30.0-30.9, adult
CPT/HCPCS: 36600; 71045; 71250; 76775; 80048; 80053; 80061; 81001; 82306; 82550; 82553; 82803; 82962; 83036; 83605; 83735; 83880; 84439; 84443; 84484; 84560; 85025; 85610; 85730; 86480; 87040-91; 87070; 87081; 87086; 88104; 89220; 93005; 93306; 94640; 94644; 94660; 94664; 96374; 96375; 97116; 97161; 97530; 99285-25

== ENCOUNTER 2018-11-01 18:30 | Inpatient (IN) | payer MEDICARE, OTHER ==
[2018-11-01] MEDS ORDERED: GLUCOSE GEL 15 GRAM TUBE BUCCAL (22:30)
[2018-11-01] MEDS ORDERED: LACTULOSE 30ML CUP PO (22:30)
[2018-11-01] MEDS ORDERED: GLUCOSE GEL 15 GRAM TUBE PO ×2 (22:30)
[2018-11-01] MEDS ORDERED: DEXTROSE 50% 50 ML SYRINGE IV ×2 (22:30)
[2018-11-01] MEDS ORDERED: MAGNESIUM HYDROXIDE 30ML CUP PO (22:30)
[2018-11-01] MEDS ORDERED: ACETAMINOPHEN 325 MG TAB PO (22:30)
[2018-11-01] MEDS ORDERED: GLUCAGON 1 MG INJ IM (22:30)
[2018-11-01] MEDS ORDERED: BISACODYL 10 MG SUPP PR (22:30)
[2018-11-01] MEDS: GUAIFENESIN/DM (SR) TAB PO (23:00)
[2018-11-01] MEDS: FAMOTIDINE 20 MG TAB PO (23:01)
[2018-11-01] MEDS: METOPROLOL 50 MG TAB PO (23:04)
[2018-11-01] MEDS: LEVALBUTEROL (NEB) 1.25 MG/0.5 ML AMP HHN (23:20)
[2018-11-01 23:31] LABS: ADD UMIC YES; UR ASCORBIC ACID NEGATIVE (NEGATIVE); UR BILIRUBIN (Dip) NEGATIVE (NEGATIVE); UR BLOOD (Dip) 3+ mg/dL (NEGATIVE); UR CLARITY CLEAR (CLEAR); UR COLOR STRAW (YELLOW); UR GLUCOSE (Dip) NEGATIVE (NEGATIVE); UR KETONES (Dip) NEGATIVE (NEGATIVE); UR LEUKOCYTE ESTERASE (Dip) NEGATIVE Leu/ul (NEGATIVE); UR NITRITE (Dip) NEGATIVE (NEGATIVE); UR RBC 180 /HPF (0-5); UR SPECIFIC GRAVITY (Dip) 1.009 (1.003-1.030); UR TOTAL PROTEIN (Dip) NEGATIVE (NEGATIVE); UR UROBILINOGEN (Dip) NEGATIVE (NEGATIVE); UR WBC 5 /HPF (0-5)
[2018-11-02] MEDS: LORAZEPAM 2 MG INJ IV (00:14)
[2018-11-02] MEDS: IPRATROPIUM (NEB) 0.5 MG/2.5 ML AMP HHN ×4 (01:00→13:40)
[2018-11-02] MEDS ORDERED: ACCU-CHEK XX (02:00)
[2018-11-02] MEDS ORDERED: BISACODYL 10 MG SUPP PR (05:00)
[2018-11-02] MEDS: PANTOPRAZOLE (EC) 40 MG TAB PO (06:29)
[2018-11-02] MEDS: INSULIN GLARGINE [LANTus] (100 UNITS/ML) SYG SC (07:59)
[2018-11-02] MEDS ORDERED: INSULIN GLARGINE [LANTus] (100 UNITS/ML) SYG SC (08:00)
[2018-11-02] MEDS: FLUTICASONE/VILANTEROL 100-25 INH (08:08)
[2018-11-02] MEDS: predniSONE 10 MG TAB PO (08:09)
[2018-11-02] MEDS: ASPIRIN (EC) 81 MG TAB PO (08:09)
[2018-11-02] MEDS: EZETIMIBE 10 MG TAB PO (08:09)
[2018-11-02] MEDS: LINAGLIPTIN 5 MG TABLET PO (08:09)
[2018-11-02] MEDS: GUAIFENESIN/DM (SR) TAB PO ×2 (08:09→21:43)
[2018-11-02] MEDS: ALLOPURINOL 100 MG TAB PO (08:09)
[2018-11-02] MEDS: FAMOTIDINE 20 MG TAB PO ×2 (08:09→21:44)
[2018-11-02] MEDS: TIOTROPIUM 18 MCG CAPSULE INHA DEV INH (08:10)
[2018-11-02] MEDS: DOCUSATE SODIUM 100 MG CAP PO ×3 (08:11→21:43)
[2018-11-02 08:50] LABS: ADD MAN DIFF? NO
[2018-11-02 08:59] LABS: WHITE BLOOD COUNT 12.5 10^3/ul (4.8-10.8)
[2018-11-02 08:59] LABS: ABNORMAL IP MESSAGE 1; BASOPHIL # 0.1 10^3/ul (0.0-0.1); BASOPHILS % 0.6 % (0.0-2.0); EOSINOPHILS # 0.2 10^3/ul (0.0-0.5); EOSINOPHILS % 1.6 % (0.0-7.0); HEMATOCRIT 39.5 % (42.0-52.0); HEMOGLOBIN 12.8 g/dl (14.0-18.0); LYMPHOCYTES # 3.1 10^3/ul (0.8-2.9); LYMPHOCYTES % 24.4 % (15.0-51.0); MEAN CORPUSCULAR HEMOGLOBIN 29.3 pg (29.0-33.0); MEAN CORPUSCULAR HGB CONC 32.4 g/dl (32.0-37.0); MEAN CORPUSCULAR VOLUME 90.4 fl (82.0-101.0); MEAN PLATELET VOLUME 10.1 fl (7.4-10.4); MONOCYTE # 1.2 10^3/ul (0.3-0.9); MONOCYTES % 9.5 % (0.0-11.0); NEUTROPHIL # 7.3 10^3/ul (1.6-7.5); NEUTROPHILS % 58.8 % (39.0-77.0); PLATELET COUNT 268 10^3/UL (140-415); POSITIVE DIFF @See below; RED BLOOD COUNT 4.37 10^6/ul (4.70-6.10)
[2018-11-02] MEDS: METOPROLOL 50 MG TAB PO ×2 (09:00→21:43)
[2018-11-02] MEDS: LISINOPRIL 20 MG TAB PO (09:00)
[2018-11-02 09:41] LABS: ALANINE AMINOTRANSFERASE 70 IU/L (13-69); ALBUMIN 3.3 g/dl (3.3-4.9); ALBUMIN/GLOBULIN RATIO 1.06; ALKALINE PHOSPHATASE 43 IU/L (42-121); ANION GAP 8 (5-13); ASPARTATE AMINO TRANSFERASE 45 IU/L (15-46); BILIRUBIN,INDIRECT 0.5 mg/dl (0-1.1); BILIRUBIN,TOTAL 0.5 mg/dl (0.2-1.3); BLOOD UREA NITROGEN 23 mg/dl (7-20); CALCIUM 8.8 mg/dl (8.4-10.2); CARBON DIOXIDE 29 mmol/L (21-31); CHLORIDE 101 mmol/L (97-110); CREATININE 0.91 mg/dl (0.61-1.24); GLUCOSE 121 mg/dl (70-220); POTASSIUM 3.3 mmol/L (3.5-5.1); SODIUM 138 mmol/L (135-144); TOTAL PROTEIN 6.4 g/dl (6.1-8.1)
[2018-11-02] MEDS: NPH, HUMAN INSULIN ISOPHANE 3ML VIAL SC ×2 (09:56→15:20)
[2018-11-02] MEDS: FUROSEMIDE 40 MG TAB PO (10:08)
[2018-11-02] MEDS: POTASSIUM CHLORIDE (SR) 20 MEQ TAB PO (13:16)
[2018-11-02] MEDS ORDERED: GUAIFENESIN/DM (SR) TAB PO (13:30)
[2018-11-02 13:33] LABS: MAGNESIUM 1.9 mg/dl (1.7-2.5)
[2018-11-02] MEDS: BUDESONIDE (NEB) 0.5MG/2ML AMP HHN ×2 (13:58→19:45)
[2018-11-02] MEDS: ALBUTEROL/IPRATROPIUM (NEB) 3 ML AMP HHN ×2 (13:58→19:44)
[2018-11-02] MEDS: INSULIN ASPART [NOVOLOG] 3 ML PEN SC ×3 (14:18→21:00)
[2018-11-02] MEDS ORDERED: TIOTROPIUM 18 MCG CAPSULE INHA DEV INH (14:30)
[2018-11-02] MEDS ORDERED: SENNA TAB PO (21:00)
[2018-11-02] MEDS: SENNA TAB PO (21:44)
[2018-11-02] MEDS: traZODone 50 MG TAB PO (21:44)
[2018-11-03] MEDS: ALBUTEROL/IPRATROPIUM (NEB) 3 ML AMP HHN ×4 (01:05→19:28)
[2018-11-03] MEDS: GUAIFENESIN/DM 5ML CUP PO ×2 (02:56→23:39)
[2018-11-03] MEDS: PANTOPRAZOLE (EC) 40 MG TAB PO (05:28)
[2018-11-03] MEDS: INSULIN ASPART [NOVOLOG] 3 ML PEN SC ×4 (07:35→20:57)
[2018-11-03] MEDS: TIOTROPIUM 18 MCG CAPSULE INHA DEV INH (08:09)
[2018-11-03] MEDS: FLUTICASONE/VILANTEROL 100-25 INH (08:09)
[2018-11-03] MEDS: EZETIMIBE 10 MG TAB PO (08:10)
[2018-11-03] MEDS: ALLOPURINOL 100 MG TAB PO (08:10)
[2018-11-03] MEDS: ASPIRIN (EC) 81 MG TAB PO (08:11)
[2018-11-03] MEDS: GUAIFENESIN/DM (SR) TAB PO ×2 (08:11→20:50)
[2018-11-03] MEDS: DOCUSATE SODIUM 100 MG CAP PO ×2 (08:11→20:49)
[2018-11-03] MEDS: predniSONE 10 MG TAB PO (08:12)
[2018-11-03] MEDS: FAMOTIDINE 20 MG TAB PO ×2 (08:12→20:50)
[2018-11-03] MEDS: LINAGLIPTIN 5 MG TABLET PO (08:12)
[2018-11-03] MEDS: INSULIN GLARGINE [LANTus] (100 UNITS/ML) SYG SC (08:17)
[2018-11-03] MEDS: METOPROLOL 50 MG TAB PO ×2 (08:26→20:50)
[2018-11-03] MEDS: LISINOPRIL 20 MG TAB PO (08:27)
[2018-11-03] MEDS: NPH, HUMAN INSULIN ISOPHANE 3ML VIAL SC (08:33)
[2018-11-03] MEDS: FUROSEMIDE 40 MG TAB PO (09:00)
[2018-11-03] MEDS: BUDESONIDE (NEB) 0.5MG/2ML AMP HHN ×2 (09:07→19:28)
[2018-11-03] MEDS: SENNA TAB PO (20:49)
[2018-11-03] MEDS: ALPRAZOLAM 0.25 MG TAB PO (20:50)
[2018-11-04] MEDS: ALBUTEROL/IPRATROPIUM (NEB) 3 ML AMP HHN ×5 (01:23→21:29)
[2018-11-04] MEDS: PANTOPRAZOLE (EC) 40 MG TAB PO (06:36)
[2018-11-04] MEDS: INSULIN ASPART [NOVOLOG] 3 ML PEN SC ×4 (07:35→20:16)
[2018-11-04] MEDS: LINAGLIPTIN 5 MG TABLET PO (08:58)
[2018-11-04] MEDS: FLUTICASONE/VILANTEROL 100-25 INH (08:58)
[2018-11-04] MEDS: INSULIN GLARGINE [LANTus] (100 UNITS/ML) SYG SC (08:59)
[2018-11-04] MEDS: TIOTROPIUM 18 MCG CAPSULE INHA DEV INH (08:59)
[2018-11-04] MEDS: METOPROLOL 50 MG TAB PO ×2 (09:00→21:26)
[2018-11-04] MEDS: LISINOPRIL 20 MG TAB PO (09:00)
[2018-11-04] MEDS: EZETIMIBE 10 MG TAB PO (09:01)
[2018-11-04] MEDS: GUAIFENESIN/DM (SR) TAB PO ×2 (09:01→21:26)
[2018-11-04] MEDS: GUAIFENESIN/DM 5ML CUP PO ×3 (09:01→18:44)
[2018-11-04] MEDS: DOCUSATE SODIUM 100 MG CAP PO ×2 (09:01→21:25)
[2018-11-04] MEDS: FAMOTIDINE 20 MG TAB PO ×2 (09:01→21:25)
[2018-11-04] MEDS: ASPIRIN (EC) 81 MG TAB PO (09:01)
[2018-11-04] MEDS: ALLOPURINOL 100 MG TAB PO (09:01)
[2018-11-04] MEDS: predniSONE 10 MG TAB PO (09:02)
[2018-11-04] MEDS: BUDESONIDE (NEB) 0.5MG/2ML AMP HHN ×2 (10:04→21:29)
[2018-11-04] MEDS: NPH, HUMAN INSULIN ISOPHANE 3ML VIAL SC (10:50)
[2018-11-04] MEDS: FUROSEMIDE 40 MG TAB PO (12:06)
[2018-11-04] MEDS: LORAZEPAM 0.5 MG TAB PO (21:25)
[2018-11-04] MEDS: SENNA TAB PO (21:26)
[2018-11-05] MEDS: ALBUTEROL/IPRATROPIUM (NEB) 3 ML AMP HHN ×4 (02:00→19:18)
[2018-11-05] MEDS: GUAIFENESIN/DM 5ML CUP PO ×4 (02:48→20:28)
[2018-11-05] MEDS: PANTOPRAZOLE (EC) 40 MG TAB PO (06:04)
[2018-11-05] MEDS: BUDESONIDE (NEB) 0.5MG/2ML AMP HHN ×2 (07:34→19:18)
[2018-11-05] MEDS: INSULIN ASPART [NOVOLOG] 3 ML PEN SC ×4 (07:35→20:38)
[2018-11-05] MEDS: LINAGLIPTIN 5 MG TABLET PO (07:49)
[2018-11-05] MEDS: INSULIN GLARGINE [LANTus] (100 UNITS/ML) SYG SC (07:54)
[2018-11-05] MEDS: TIOTROPIUM 18 MCG CAPSULE INHA DEV INH (09:10)
[2018-11-05] MEDS: FLUTICASONE/VILANTEROL 100-25 INH (09:10)
[2018-11-05] MEDS: LOSARTAN 25 MG TAB PO (09:12)
[2018-11-05] MEDS: DOCUSATE SODIUM 100 MG CAP PO ×2 (09:13→20:39)
[2018-11-05] MEDS: METOPROLOL 50 MG TAB PO ×2 (09:13→20:32)
[2018-11-05] MEDS: EZETIMIBE 10 MG TAB PO (09:13)
[2018-11-05] MEDS: FAMOTIDINE 20 MG TAB PO ×2 (09:13→20:33)
[2018-11-05] MEDS: ALLOPURINOL 100 MG TAB PO (09:13)
[2018-11-05] MEDS: GUAIFENESIN/DM (SR) TAB PO ×2 (09:13→20:30)
[2018-11-05] MEDS: ASPIRIN (EC) 81 MG TAB PO (09:13)
[2018-11-05] MEDS: LORAZEPAM 0.5 MG TAB PO (20:28)
[2018-11-05] MEDS: SENNA TAB PO (20:33)
[2018-11-06] MEDS: GUAIFENESIN/DM 5ML CUP PO ×5 (01:06→20:13)
[2018-11-06] MEDS: ALBUTEROL/IPRATROPIUM (NEB) 3 ML AMP HHN ×5 (01:51→20:26)
[2018-11-06] MEDS: PANTOPRAZOLE (EC) 40 MG TAB PO (05:53)
[2018-11-06] MEDS: INSULIN ASPART [NOVOLOG] 3 ML PEN SC ×4 (07:35→20:43)
[2018-11-06] MEDS: BUDESONIDE (NEB) 0.5MG/2ML AMP HHN ×3 (07:45→20:26)
[2018-11-06] MEDS: INSULIN GLARGINE [LANTus] (100 UNITS/ML) SYG SC (07:58)
[2018-11-06] MEDS: LINAGLIPTIN 5 MG TABLET PO (07:58)
[2018-11-06] MEDS: LOSARTAN 25 MG TAB PO (09:00)
[2018-11-06] MEDS: METOPROLOL 50 MG TAB PO (09:00)
[2018-11-06] MEDS: TIOTROPIUM 18 MCG CAPSULE INHA DEV INH (09:16)
[2018-11-06] MEDS: ALLOPURINOL 100 MG TAB PO (09:17)
[2018-11-06] MEDS: DOCUSATE SODIUM 100 MG CAP PO ×2 (09:17→20:42)
[2018-11-06] MEDS: FAMOTIDINE 20 MG TAB PO ×2 (09:17→20:14)
[2018-11-06] MEDS: GUAIFENESIN/DM (SR) TAB PO ×2 (09:18→20:13)
[2018-11-06] MEDS: FLUTICASONE/VILANTEROL 100-25 INH (09:18)
[2018-11-06] MEDS: ASPIRIN (EC) 81 MG TAB PO (09:18)
[2018-11-06] MEDS: EZETIMIBE 10 MG TAB PO (09:18)
[2018-11-06] MEDS: LACTULOSE 30ML CUP PO (10:03)
[2018-11-06] MEDS: LORAZEPAM 0.5 MG TAB PO (20:14)
[2018-11-06] MEDS: METOPROLOL 25 MG TAB PO (20:42)
[2018-11-06] MEDS: SENNA TAB PO (20:43)
[2018-11-07] MEDS: ALBUTEROL/IPRATROPIUM (NEB) 3 ML AMP HHN ×4 (01:19→20:00)
[2018-11-07] MEDS: GUAIFENESIN/DM 5ML CUP PO (01:27)
[2018-11-07] MEDS: PANTOPRAZOLE (EC) 40 MG TAB PO (06:38)
[2018-11-07] MEDS: INSULIN ASPART [NOVOLOG] 3 ML PEN SC ×4 (07:35→20:28)
[2018-11-07] MEDS: FLUTICASONE/VILANTEROL 100-25 INH (08:18)
[2018-11-07] MEDS: FAMOTIDINE 20 MG TAB PO ×2 (08:19→20:26)
[2018-11-07] MEDS: ASPIRIN (EC) 81 MG TAB PO (08:19)
[2018-11-07] MEDS: LOSARTAN 25 MG TAB PO (08:19)
[2018-11-07] MEDS: GUAIFENESIN/DM (SR) TAB PO ×2 (08:20→20:26)
[2018-11-07] MEDS: TIOTROPIUM 18 MCG CAPSULE INHA DEV INH (08:20)
[2018-11-07] MEDS: LINAGLIPTIN 5 MG TABLET PO (08:20)
[2018-11-07] MEDS: ALLOPURINOL 100 MG TAB PO (08:20)
[2018-11-07] MEDS: EZETIMIBE 10 MG TAB PO (08:20)
[2018-11-07] MEDS: METOPROLOL 25 MG TAB PO ×2 (08:21→20:27)
[2018-11-07] MEDS: BUDESONIDE (NEB) 0.5MG/2ML AMP HHN ×2 (08:28→20:00)
[2018-11-07] MEDS: DOCUSATE SODIUM 100 MG CAP PO ×2 (09:00→20:26)
[2018-11-07] MEDS: INSULIN GLARGINE [LANTus] (100 UNITS/ML) SYG SC (09:59)
[2018-11-07] MEDS: ACETAMINOPHEN 325 MG TAB PO ×2 (10:02→13:27)
[2018-11-07] MEDS: BENZONATATE 100 MG CAP PO ×2 (13:26→20:28)
[2018-11-07] MEDS: LORAZEPAM 0.5 MG TAB PO (20:25)
[2018-11-07] MEDS: SENNA TAB PO (20:26)
[2018-11-08] MEDS: GUAIFENESIN/DM 5ML CUP PO ×4 (01:16→23:27)
[2018-11-08] MEDS: ACETAMINOPHEN 325 MG TAB PO ×2 (01:16→13:26)
[2018-11-08] MEDS: ALBUTEROL/IPRATROPIUM (NEB) 3 ML AMP HHN ×4 (01:33→19:51)
[2018-11-08] MEDS: PANTOPRAZOLE (EC) 40 MG TAB PO (06:30)
[2018-11-08] MEDS: INSULIN ASPART [NOVOLOG] 3 ML PEN SC ×4 (07:35→20:29)
[2018-11-08] MEDS: BUDESONIDE (NEB) 0.5MG/2ML AMP HHN ×2 (07:54→19:51)
[2018-11-08] MEDS: LOSARTAN 25 MG TAB PO (09:00)
[2018-11-08] MEDS: METOPROLOL 25 MG TAB PO (09:00)
[2018-11-08] MEDS: TIOTROPIUM 18 MCG CAPSULE INHA DEV INH (09:01)
[2018-11-08] MEDS: FLUTICASONE/VILANTEROL 100-25 INH (09:01)
[2018-11-08] MEDS: GUAIFENESIN/DM (SR) TAB PO ×2 (09:03→20:26)
[2018-11-08] MEDS: FAMOTIDINE 20 MG TAB PO ×2 (09:03→20:26)
[2018-11-08] MEDS: DOCUSATE SODIUM 100 MG CAP PO ×2 (09:03→20:26)
[2018-11-08] MEDS: BENZONATATE 100 MG CAP PO ×3 (09:03→20:26)
[2018-11-08] MEDS: EZETIMIBE 10 MG TAB PO (09:03)
[2018-11-08] MEDS: ALLOPURINOL 100 MG TAB PO (09:03)
[2018-11-08] MEDS: ASPIRIN (EC) 81 MG TAB PO (09:03)
[2018-11-08] MEDS: LINAGLIPTIN 5 MG TABLET PO (09:03)
[2018-11-08] MEDS: INSULIN GLARGINE [LANTus] (100 UNITS/ML) SYG SC (09:04)
[2018-11-08] MEDS: ARFORMOTEROL TARTRATE 15MCG/2 ML AMP NEB ×2 (13:48→19:51)
[2018-11-08] MEDS: SOD CHLORIDE 0.9% 500 ML IV (15:44)
[2018-11-08] MEDS: SENNA TAB PO (20:26)
[2018-11-09] MEDS: LORAZEPAM 0.5 MG TAB PO ×2 (00:25→21:50)
[2018-11-09] MEDS: ALBUTEROL/IPRATROPIUM (NEB) 3 ML AMP HHN ×4 (01:09→19:47)
[2018-11-09] MEDS: PANTOPRAZOLE (EC) 40 MG TAB PO (06:24)
[2018-11-09] MEDS: BUDESONIDE (NEB) 0.5MG/2ML AMP HHN ×2 (07:57→19:47)
[2018-11-09] MEDS: ARFORMOTEROL TARTRATE 15MCG/2 ML AMP NEB ×2 (08:06→19:47)
[2018-11-09] MEDS: INSULIN ASPART [NOVOLOG] 3 ML PEN SC ×4 (08:07→20:40)
[2018-11-09] MEDS: INSULIN GLARGINE [LANTus] (100 UNITS/ML) SYG SC (08:08)
[2018-11-09] MEDS: EZETIMIBE 10 MG TAB PO (08:09)
[2018-11-09] MEDS: FLUTICASONE/VILANTEROL 100-25 INH (08:09)
[2018-11-09] MEDS: TIOTROPIUM 18 MCG CAPSULE INHA DEV INH (08:09)
[2018-11-09] MEDS: GUAIFENESIN/DM (SR) TAB PO ×2 (08:09→20:39)
[2018-11-09] MEDS: ASPIRIN (EC) 81 MG TAB PO (08:10)
[2018-11-09] MEDS: DOCUSATE SODIUM 100 MG CAP PO ×2 (08:10→20:39)
[2018-11-09] MEDS: FAMOTIDINE 20 MG TAB PO ×2 (08:10→20:39)
[2018-11-09] MEDS: BENZONATATE 100 MG CAP PO ×3 (08:10→20:39)
[2018-11-09] MEDS: ALLOPURINOL 100 MG TAB PO (08:10)
[2018-11-09] MEDS: LINAGLIPTIN 5 MG TABLET PO (08:10)
[2018-11-09] MEDS: LOSARTAN 25 MG TAB PO (10:30)
[2018-11-09] MEDS: LACTULOSE 30ML CUP PO (16:03)
[2018-11-09] MEDS: MONTELUKAST 10 MG TAB PO (20:39)
[2018-11-09] MEDS: SENNA TAB PO (20:40)
[2018-11-10] MEDS: ALBUTEROL/IPRATROPIUM (NEB) 3 ML AMP HHN ×4 (01:51→19:24)
[2018-11-10] MEDS: GUAIFENESIN/DM 5ML CUP PO ×4 (03:27→21:25)
[2018-11-10] MEDS: MAGNESIUM HYDROXIDE 30ML CUP PO (05:22)
[2018-11-10] MEDS: PANTOPRAZOLE (EC) 40 MG TAB PO (05:22)
[2018-11-10] MEDS: INSULIN ASPART [NOVOLOG] 3 ML PEN SC ×4 (07:35→21:00)
[2018-11-10 07:44] LABS: FREE T4 (FREE THYROXINE) 1.62 ng/dl (0.78-2.44)
[2018-11-10 07:44] LABS: FREE T3 3.81 pg/ml (2.77-5.27)
[2018-11-10] MEDS: LINAGLIPTIN 5 MG TABLET PO (07:56)
[2018-11-10] MEDS: INSULIN GLARGINE [LANTus] (100 UNITS/ML) SYG SC (07:57)
[2018-11-10 07:58] LABS: THYROID STIMULATING HORMONE 0.199 MIU/L (0.465-4.680)
[2018-11-10] MEDS: ARFORMOTEROL TARTRATE 15MCG/2 ML AMP NEB ×2 (08:55→21:00)
[2018-11-10] MEDS: BUDESONIDE (NEB) 0.5MG/2ML AMP HHN ×2 (09:04→19:24)
[2018-11-10] MEDS: FLUTICASONE/VILANTEROL 200-25 INH DEVICE INH (10:00)
[2018-11-10] MEDS: DOCUSATE SODIUM 100 MG CAP PO ×2 (10:00→20:32)
[2018-11-10] MEDS: TIOTROPIUM 18 MCG CAPSULE INHA DEV INH (10:00)
[2018-11-10] MEDS: FAMOTIDINE 20 MG TAB PO ×2 (10:00→20:33)
[2018-11-10] MEDS: BENZONATATE 100 MG CAP PO ×3 (10:01→20:33)
[2018-11-10] MEDS: ASPIRIN (EC) 81 MG TAB PO (10:01)
[2018-11-10] MEDS: EZETIMIBE 10 MG TAB PO (10:01)
[2018-11-10] MEDS: GUAIFENESIN/DM (SR) TAB PO ×2 (10:01→20:33)
[2018-11-10] MEDS: LOSARTAN 25 MG TAB PO (10:01)
[2018-11-10] MEDS: ALLOPURINOL 100 MG TAB PO (10:01)
[2018-11-10] MEDS: FINASTERIDE 5 MG TAB PO (11:50)
[2018-11-10] MEDS: ALFUZOSIN (SR) 10 MG TAB PO (20:32)
[2018-11-10] MEDS: LORAZEPAM 0.5 MG TAB PO (20:32)
[2018-11-10] MEDS: MONTELUKAST 10 MG TAB PO (20:33)
[2018-11-10] MEDS: SENNA TAB PO (21:00)
[2018-11-11] MEDS: ALBUTEROL/IPRATROPIUM (NEB) 3 ML AMP HHN ×4 (01:00→20:20)
[2018-11-11] MEDS: GUAIFENESIN/DM 5ML CUP PO ×3 (03:12→20:40)
[2018-11-11] MEDS: PANTOPRAZOLE (EC) 40 MG TAB PO (06:39)
[2018-11-11] MEDS: ARFORMOTEROL TARTRATE 15MCG/2 ML AMP NEB ×2 (07:36→20:21)
[2018-11-11] MEDS: BUDESONIDE (NEB) 0.5MG/2ML AMP HHN ×2 (07:36→20:21)
[2018-11-11] MEDS: INSULIN GLARGINE [LANTus] (100 UNITS/ML) SYG SC (08:13)
[2018-11-11] MEDS: INSULIN ASPART [NOVOLOG] 3 ML PEN SC ×4 (08:28→21:00)
[2018-11-11] MEDS: LINAGLIPTIN 5 MG TABLET PO (08:29)
[2018-11-11] MEDS: LOSARTAN 25 MG TAB PO (09:00)
[2018-11-11] MEDS: TIOTROPIUM 18 MCG CAPSULE INHA DEV INH (09:12)
[2018-11-11] MEDS: ASPIRIN (EC) 81 MG TAB PO (09:13)
[2018-11-11] MEDS: ALLOPURINOL 100 MG TAB PO (09:13)
[2018-11-11] MEDS: BENZONATATE 100 MG CAP PO ×3 (09:13→20:40)
[2018-11-11] MEDS: FAMOTIDINE 20 MG TAB PO ×2 (09:13→20:40)
[2018-11-11] MEDS: DOCUSATE SODIUM 100 MG CAP PO ×2 (09:13→20:40)
[2018-11-11] MEDS: FINASTERIDE 5 MG TAB PO (09:13)
[2018-11-11] MEDS: GUAIFENESIN/DM (SR) TAB PO ×2 (09:13→20:40)
[2018-11-11] MEDS: EZETIMIBE 10 MG TAB PO (09:13)
[2018-11-11] MEDS: FLUTICASONE/VILANTEROL 200-25 INH DEVICE INH (09:24)
[2018-11-11] MEDS: LORAZEPAM 0.5 MG TAB PO (20:39)
[2018-11-11] MEDS: ALFUZOSIN (SR) 10 MG TAB PO (20:39)
[2018-11-11] MEDS: MONTELUKAST 10 MG TAB PO (20:40)
[2018-11-11] MEDS: SENNA TAB PO (21:00)
[2018-11-12] MEDS: PROMETHAZINE/CODEINE 5ML CUP PO ×2 (01:59→09:06)
[2018-11-12] MEDS: PANTOPRAZOLE (EC) 40 MG TAB PO (06:06)
[2018-11-12] MEDS: LEVOFLOXACIN 500 MG TAB PO (06:06)
[2018-11-12] MEDS: INSULIN ASPART [NOVOLOG] 3 ML PEN SC ×2 (07:35→12:00)
[2018-11-12] MEDS: BUDESONIDE (NEB) 0.5MG/2ML AMP HHN (07:49)
[2018-11-12] MEDS: ARFORMOTEROL TARTRATE 15MCG/2 ML AMP NEB (07:49)
[2018-11-12] MEDS: ALBUTEROL/IPRATROPIUM (NEB) 3 ML AMP HHN (07:49)
[2018-11-12] MEDS: LINAGLIPTIN 5 MG TABLET PO (07:55)
[2018-11-12] MEDS: INSULIN GLARGINE [LANTus] (100 UNITS/ML) SYG SC (07:57)
[2018-11-12] MEDS ORDERED: LOSARTAN 25 MG TAB PO (09:00)
[2018-11-12] MEDS: FINASTERIDE 5 MG TAB PO (09:05)
[2018-11-12] MEDS: FAMOTIDINE 20 MG TAB PO (09:05)
[2018-11-12] MEDS: BENZONATATE 100 MG CAP PO ×2 (09:05→12:16)
[2018-11-12] MEDS: ALLOPURINOL 100 MG TAB PO (09:05)
[2018-11-12] MEDS: TIOTROPIUM 18 MCG CAPSULE INHA DEV INH (09:05)
[2018-11-12] MEDS: DOCUSATE SODIUM 100 MG CAP PO (09:05)
[2018-11-12] MEDS: GUAIFENESIN/DM (SR) TAB PO (09:05)
[2018-11-12] MEDS: FLUTICASONE/VILANTEROL 200-25 INH DEVICE INH (09:05)
[2018-11-12] MEDS: EZETIMIBE 10 MG TAB PO (09:05)
[2018-11-12] MEDS: ASPIRIN (EC) 81 MG TAB PO (09:05)
[2018-11-12] MEDS: GUAIFENESIN/DM 5ML CUP PO ×2 (12:16→12:17)
== END 2018-11-12 13:29 | disposition home health service (06) | DRG 91 ==
LOC: VRC 18:30
PROC: F07Z5ZZ Bed Mobility Treatment (ICD-10-PCS; principal; 2018-11-02)
PROC: F07Z8ZZ Transfer Training Treatment (ICD-10-PCS; 2018-11-02)
PROC: F07Z9ZZ Gait Training/Functional Ambulation Treatment (ICD-10-PCS; 2018-11-02)
PROC: F08Z2ZZ Grooming/Personal Hygiene Treatment (ICD-10-PCS; 2018-11-02)
PROC: F08Z1ZZ Dressing Techniques Treatment (ICD-10-PCS; 2018-11-02)
PROC: F08Z0ZZ Bathing/Showering Techniques Treatment (ICD-10-PCS; 2018-11-02)
DX: G72.81 Critical illness myopathy (principal); J96.90 Respiratory failure, unspecified, unspecified whether with hypoxia or hypercapnia; E87.1 Hypo-osmolality and hyponatremia; J84.9 Interstitial pulmonary disease, unspecified; D64.9 Anemia, unspecified; J20.9 Acute bronchitis, unspecified; J43.2 Centrilobular emphysema; E78.5 Hyperlipidemia, unspecified; E11.9 Type 2 diabetes mellitus without complications; F17.200 Nicotine dependence, unspecified, uncomplicated; F41.9 Anxiety disorder, unspecified; G47.00 Insomnia, unspecified; F06.31 Mood disorder due to known physiological condition with depressive features; I25.10 Atherosclerotic heart disease of native coronary artery without angina pectoris; I50.9 Heart failure, unspecified; I11.0 Hypertensive heart disease with heart failure; N40.1 Benign prostatic hyperplasia with lower urinary tract symptoms; R31.9 Hematuria, unspecified; R94.6 Abnormal results of thyroid function studies; R53.81 Other malaise; R00.0 Tachycardia, unspecified; R94.31 Abnormal electrocardiogram [ECG] [EKG]; Z95.1 Presence of aortocoronary bypass graft; Z87.01 Personal history of pneumonia (recurrent); Z79.4 Long term (current) use of insulin; Z74.09 Other reduced mobility; Z79.82 Long term (current) use of aspirin; Z79.52 Long term (current) use of systemic steroids
CPT/HCPCS: 71046; 80053; 81001; 82962; 83735; 84439; 84443; 84481; 85025; 87070; 87081; 87086; 94640; 94664; 97110; 97116; 97163; 97167; 97530; 97535